=== PATIENT | male | born 1980 | race Caucasian/White ===

== ENCOUNTER 2017-04-13 21:41 | Emergency (ER) | payer OTHER ==
[2017-04-13 21:50] VITALS: TEMP 98
--- NOTE | 2017-04-13 22:16 | C.PDOC ---
History Of Present Illness <Ekta Avalos - Last Filed: 04/13/17 22:07> <Marcia Brown - Last Filed: 04/14/17 00:39> 36 y/o male presents with laceration to right lateral upper eyelid caused by elbow accidentally hitting patient there during a basketball game. pt landed on buttock, denies any other injury. no blurry vision, no visual changes. no neck pain. (Ekta Avalos) History Per: Patient History/Exam Limitations: no limitations Onset/Duration Of Symptoms: Hrs (2) Current Symptoms Are (Timing): Still Present Location Of Injury: Right: Head (upper eyelid) Quality Of Symptoms: Painful Severity: Mild <Ekta Avalos - Last Filed: 04/13/17 22:07> <Marcia Brown - Last Filed: 04/14/17 00:39> Time Seen by Provider: 04/13/17 22:02 Chief Complaint (Nursing): Abnormal Skin Integrity Past Medical History Reviewed: Historical Data, Nursing Documentation, Vital Signs - Medical History PMH: No Chronic Diseases Other Surgeries: laceration repair Family History: States: Unknown Family Hx - Social History Hx Alcohol Use: Yes Hx Substance Use: No - Immunization History Hx Tetanus Toxoid Vaccination: Yes <Ekta Avalos - Last Filed: 04/13/17 22:07> Review Of Systems Constitutional: Negative for: Fever, Chills Eyes: Positive for: Pain. Negative for: Vision Change ENT: Negative for: Ear Pain, Nose Pain Cardiovascular: Negative for: Chest Pain, Palpitations Skin: Positive for: Other (laceration 2-2. 5 cm right eyelid) <Ekta Avalos - Last Filed: 04/13/17 22:07> Physical Exam - Physical Exam Appears: Non-toxic, No Acute Distress Skin: Warm, Dry Head: Normacephalic, Laceration (2-2.5 cm horizontal wide laceratin to right upper eyelid. ) Eye(s): bilateral: Normal Inspection, PERRL, EOMI Nose: Normal Oral Mucosa: Moist Tongue: Normal Appearing Lips: Normal Appearing Neck: Normal ROM, No Midline Cervical Tenderness, No Paracervical Tenderness Chest: Symmetrical, No Deformity, No Tenderness Cardiovascular: Rhythm Regular, No Murmur Neurological/Psych: Oriented x3, Normal Speech, Normal Cognition, Normal Motor, Normal Sensation <Ekta Avalos - Last Filed: 04/13/17 22:07> ED Course And Treatment O2 Sat by Pulse Oximetry: 98 <Ekta Avalos - Last Filed: 04/13/17 22:07> Progress Note: Patient seen in Ed and sutured by Dr Branham. <Marcia Brown - Last Filed: 04/14/17 00:39> Medical Decision Making <Ekta Avalos - Last Filed: 04/13/17 22:07> <Marcia Brown - Last Filed: 04/14/17 00:39> Medical Decision Making: message left for Dr Hendrix on cell phone. pt requested plastics for repair; Discussed with Dr Hendrix; pt made aware that her services are out of net work and uncovered, there will be an out of pocket cost. pt agrees and wishes for wound to be repaired by Dr Ng. She requests Tdap and po keflex. (Ekta Avalos) Disposition <Ekta Avalos - Last Filed: 04/13/17 22:07> - Disposition Disposition Time: 00:37 <Marcia Brown - Last Filed: 04/14/17 00:39> - Disposition Referrals: Jc Branham MD [Staff Provider] - Disposition: HOME/ ROUTINE Condition: IMPROVED Prescriptions: Cephalexin [Keflex] 500 mg PO TID #5 capsule Instructions: Facial Laceration (ED) - Clinical Impression Clinical Impression: Facial laceration
[2017-04-13] MEDS ORDERED: Lidocaine 2% w Epi 1:100,000 Inj IJ ONE (23:30)
[2017-04-14 00:41] VITALS: BP 133/77; PULSE 71; RESP 18; O2SAT 97
== END 2017-04-14 00:41 | disposition home or self-care (01) ==
LOC: C.ER 21:41
DX: S01.111A Laceration without foreign body of right eyelid and periocular area, initial encounter (principal); W50.0XXA Accidental hit or strike by another person, initial encounter; Y93.67 Activity, basketball; Y92.310 Basketball court as the place of occurrence of the external cause